=== PATIENT | female | born 1955 | race African-American/Black ===

== ENCOUNTER 2017-08-27 11:16 | Emergency (ER) | payer OTHER ==
--- NOTE | 2017-08-27 11:44 | RAD ---
CHEST ONE VIEW: History: Hypertension. Comparison: 10-15-12 FINDINGS: Cardiac silhouette is magnified by projection. Pulmonary vasculature is upper limits of normal. Media stinum is midline. There is no lobar consolidation or evidence of pneumothorax. Degenerative changes are most pronounced at the right acromioclavicular joint. IMPRESSION: No active cardiopulmonary abnormalities demonstrated. POS: [facility]
[2017-08-27] MEDS ORDERED: Furosemide 40 MG/4 ML VIAL ONE (11:50)
[2017-08-27] MEDS ORDERED: Lisinopril 10 MG TAB ONE (11:50)
[2017-08-27 12:17] LABS: #Eosinphils 0.1 thou/uL (0.0-0.7); #Lymphocytes 1.7 thou/uL (1.20-3.40); #Monocytes 0.3 thou/uL (0.11-0.59); #Neutrophils 2.7 thou/uL (1.40-6.50); %Basophils 0.6 % (0.0-1.0); %Eosinophils 2.9 % (0.0-10.0); %Monocytes 6.9 % (0.0-10.0); %Neutrophils 55.6 % (42.0-75.0); Hemoglobin 14.2 g/dL (12.0-16.0); Mean Corpuscular HGB CONC 31.7 g/dL (32.0-36.0); Mean Corpuscular Hemoglobin 26.3 pg (27.0-31.0); Mean Corpuscular Volume 82.9 fl (81.0-99.0); Mean Platelet Volume 8.2 fL (7.4-10.4); Platelet Count 217 thou/uL (130-400); RBC Distribution Width 13.5 % (11.5-14.5); White Blood Cell (WBC) Count 4.9 thou/uL (4.8-10.8)
[2017-08-27 12:40] LABS: ALT (SGPT) 17 U/L (8-55); AST (SGOT) 20 U/L (5-34); Albumin 3.9 g/dL (3.5-5.0); Alkaline Phosphatase 62 U/L (40-150); Anion Gap 15 mmol/L (10-20); BUN (Urea Nitrogen) 12 mg/dL (9.8-20.1); Bilirubin, Total 0.5 mg/dL (0.2-1.2); CK (CPK) 204 U/L (29-168); Calc. Creatinine Clearance 0 mL/min (70-130); Calcium 9.8 mg/dL (7.8-10.44); Carbon Dioxide 21 mmol/L (22-29); Chloride 107 mmol/L (98-107); Estimated GFR-MDRD 84; Glucose 88 mg/dL (70-105); Potassium 3.8 mmol/L (3.5-5.1); Protein, Total 7.9 g/dL (6.0-8.3); Sodium 139 mmol/L (136-145)
[2017-08-27 12:59] LABS: Troponin I 0.011 ng/mL (< 0.028)
[2017-08-27] MEDS ORDERED: Losartan 25 MG TAB PO ONE (13:00)
[2017-08-27] MEDS ORDERED: cloNIDine 0.1 MG TAB ONE (15:21)
== END 2017-08-27 16:10 | disposition home or self-care (01) ==
LOC: ERS 11:16
DX: I10 Essential (primary) hypertension (principal); E78.5 Hyperlipidemia, unspecified; E66.9 Obesity, unspecified; Z79.899 Other long term (current) drug therapy
CPT/HCPCS: 36415; 71045; 80053; 82550; 82553; 84484; 85025; 93005; 96374; J1940

== ENCOUNTER 2017-11-12 09:51 | Outpatient (CLI) | payer OTHER | END 2017-11-12 09:52 | disposition home or self-care (01) | LOC: BICMAMMO 09:51 | PROVIDERS: ATTEND Internal Medicine | DX: Z12.31 Encounter for screening mammogram for malignant neoplasm of breast (principal) | CPT/HCPCS: 77063; 77067 ==

== ENCOUNTER 2017-11-14 06:11 | Inpatient (IN) | payer OTHER ==
[2017-11-14 06:42] LABS: #Basophils 0.1 thou/uL (0.0-0.2); #Eosinphils 0.2 thou/uL (0.0-0.7); #Lymphocytes 2.2 thou/uL (1.20-3.40); #Monocytes 0.3 thou/uL (0.11-0.59); #Neutrophils 2.5 thou/uL (1.40-6.50); %Basophils 1.6 % (0.0-1.0); %Eosinophils 4.4 % (0.0-10.0); %Monocytes 5.4 % (0.0-10.0); %Neutrophils 47.6 % (42.0-75.0); Hemoglobin 13.7 g/dL (12.0-16.0); Mean Corpuscular HGB CONC 32.1 g/dL (32.0-36.0); Mean Corpuscular Hemoglobin 25.7 pg (27.0-31.0); Mean Corpuscular Volume 80.1 fl (81.0-99.0); Mean Platelet Volume 7.5 fL (7.4-10.4); Platelet Count 237 thou/uL (130-400); RBC Distribution Width 13.1 % (11.5-14.5); Red Blood Cell (RBC) Count 5.31 mill/uL (4.20-5.40); White Blood Cell (WBC) Count 5.3 thou/uL (4.8-10.8)
[2017-11-14 06:47] LABS: INR-International Normal Ratio 0.9; Prothrombin Time 12.5 SEC (12.0-14.7)
[2017-11-14 06:48] LABS: PTT 22.6 SEC (22.9-36.1)
[2017-11-14] MEDS ORDERED: Morphine 4 MG/ML VIAL ONE (07:05)
[2017-11-14] MEDS ORDERED: Adacel (T-DAP) 0.5 ML VIAL ONE (07:05)
[2017-11-14 07:09] LABS: ALT (SGPT) 20 U/L (8-55); AST (SGOT) 21 U/L (5-34); Albumin 4.3 g/dL (3.5-5.0); Alkaline Phosphatase 62 U/L (40-150); Anion Gap 12 mmol/L (10-20); BUN (Urea Nitrogen) 19 mg/dL (9.8-20.1); Bilirubin, Total 0.4 mg/dL (0.2-1.2); Calc. Creatinine Clearance 0 mL/min (70-130); Calcium 10.1 mg/dL (7.8-10.44); Carbon Dioxide 26 mmol/L (22-29); Chloride 105 mmol/L (98-107); Estimated GFR-MDRD 62; Globulin 3.9 g/dL (2.4-3.5); Glucose 172 mg/dL (70-105); Lipase 80 U/L (8-78); Potassium 3.8 mmol/L (3.5-5.1); Protein, Total 8.2 g/dL (6.0-8.3); Sodium 139 mmol/L (136-145)
[2017-11-14] MEDS ORDERED: Ondansetron HCl/PF 4 MG/2 ML Vial IVP SCH (07:15)
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
[2017-11-14] MEDS ORDERED: Lidocaine 1% (PF) 30 ML VIAL ONE (08:00)
[2017-11-14] MEDS ORDERED: Dextrose 50% Abboject 50 ML SYRINGE SLOW IVP PRN (08:10)
[2017-11-14] MEDS ORDERED: Dextrose 5% in Water 1,000 ML IV PRN (08:10)
[2017-11-14] MEDS ORDERED: Insulin Regular 300 UNITS/3 ML VIAL SC PRN (08:10)
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
[2017-11-14] MEDS ORDERED: traMADol HCl 50 MG TAB PO PRN (08:14)
[2017-11-14] MEDS ORDERED: CEFAZOLIN/Water 2 GM/20 ML SYRINGE ONE ×2 (08:30→20:01)
[2017-11-14] MEDS ORDERED: Diltiazem 125 MG/25 ML ONE (08:30)
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
[2017-11-14] MEDS ORDERED: Morphine 4 MG/ML VIAL IV PRN (08:59)
[2017-11-14] MEDS ORDERED: Atropine Sulfate 1% Ophth Soln 5 ml Bottle EA EYE SCH (09:00)
[2017-11-14] MEDS ORDERED: Bacitracin Zinc 1 Packet ONE (09:02)
[2017-11-14] MEDS: Sodium Chloride 0.9% 1,000 ML IV SCH ×2 (10:57→18:43)
[2017-11-14] MEDS: Acetaminophen 500 MG TAB PO SCH ×3 (11:03→21:57)
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
[2017-11-14] MEDS ORDERED: Ophthalmic Irrigation Solution 15 ML ONE (12:50)
[2017-11-14] MEDS ORDERED: [UNRECOGNIZED DRUG - OTHER] ONE (12:59)
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
[2017-11-14] MEDS ORDERED: CEFAZOLIN 1 GM VIAL ONE ×3 (13:09→19:59)
[2017-11-14] MEDS ORDERED: Fentanyl 100 MCG/2 ML VIAL ONE ×3 (13:34→17:22)
[2017-11-14] MEDS ORDERED: hydrALAZINE 20 MG/ML VIAL ONE (13:44)
[2017-11-14] MEDS ORDERED: PHENYLEPHRINE-NS 100 MCG/ML 10 ML SYRINGE ONE (15:12)
[2017-11-14] MEDS ORDERED: ePHEDrine/0.9% NaCl/PF SYRINGE 50 mg/10 ml ONE (15:12)
[2017-11-14] MEDS ORDERED: Glycopyrrolate 0.2 MG/ML 5 ML SYRINGE ONE (15:12)
[2017-11-14] MEDS ORDERED: PROPOFOL 200 MG/20 ML VIAL ONE (15:12)
[2017-11-14] MEDS ORDERED: Lidocaine 1% PF 5 ML VIAL ONE (15:12)
[2017-11-14] MEDS ORDERED: ISOVUE-370 76%-LOCM 1 ML ONE (16:23)
[2017-11-14] MEDS ORDERED: hydrALAZINE 20 MG/ML VIAL SLOW IVP PRN (16:59)
[2017-11-14] MEDS ORDERED: Promethazine HCl 25 MG/ML VIAL SLOW IVP PRN (17:42)
[2017-11-14] MEDS ORDERED: Promethazine HCl 25 MG/ML VIAL IM PRN (17:42)
[2017-11-14] MEDS ORDERED: Ondansetron HCl/PF 4 MG/2 ML Vial IVP PRN ×2 (17:42→22:27)
[2017-11-14] MEDS ORDERED: SUGAMMADEX SODIUM 200 MG/2 ML VIAL ONE (20:20)
[2017-11-14] MEDS ORDERED: Ondansetron HCl/PF 4 MG/2 ML Vial ONE (20:29)
[2017-11-14] MEDS: traMADol HCl 50 MG TAB PO PRN (21:53)
[2017-11-14] MEDS ORDERED: Ondansetron ODT 4 MG TAB PO PRN (22:27)
[2017-11-14] MEDS ORDERED: Lactated Ringer's 1,000 ML IV SCH (22:30)
[2017-11-15] MEDS: Acetaminophen 500 MG TAB PO SCH ×4 (03:54→20:16)
[2017-11-15 04:03] VITALS: BMI 45.8
[2017-11-15 05:45] LABS: Anion Gap 13 mmol/L (10-20); BUN (Urea Nitrogen) 18 mg/dL (9.8-20.1); Calc. Creatinine Clearance 98 mL/min (70-130); Carbon Dioxide 25 mmol/L (22-29); Chloride 105 mmol/L (98-107); Estimated GFR-MDRD 57; Glucose 173 mg/dL (70-105); Potassium 3.6 mmol/L (3.5-5.1); Sodium 139 mmol/L (136-145)
[2017-11-15 06:17] LABS: #Lymphocytes 1.1 thou/uL (1.20-3.40); #Monocytes 0.5 thou/uL (0.11-0.59); #Neutrophils 7.3 thou/uL (1.40-6.50); %Basophils 0.1 % (0.0-1.0); %Eosinophils 0.1 % (0.0-10.0); %Lymphocytes 12.3 % (21.0-51.0); %Monocytes 5.4 % (0.0-10.0); %Neutrophils 82.2 % (42.0-75.0); Hemoglobin 12.1 g/dL (12.0-16.0); Mean Corpuscular HGB CONC 32.7 g/dL (32.0-36.0); Mean Corpuscular Hemoglobin 26.7 pg (27.0-31.0); Mean Corpuscular Volume 81.6 fl (81.0-99.0); Mean Platelet Volume 7.8 fL (7.4-10.4); Platelet Count 229 thou/uL (130-400); RBC Distribution Width 13.3 % (11.5-14.5); RBC Morphology Normal; Red Blood Cell (RBC) Count 4.52 mill/uL (4.20-5.40); White Blood Cell (WBC) Count 8.9 thou/uL (4.8-10.8)
[2017-11-15] MEDS: traMADol HCl 50 MG TAB PO PRN ×3 (08:08→20:15)
[2017-11-15] MEDS: Maxitrol 0.1% Opth Oint 3.5 GM TUBE L EYE SCH ×3 (13:01→20:17)
[2017-11-15] MEDS: Senokot S 8.6-50 MG TAB PO SCH (20:54)
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
[2017-11-16] MEDS: Acetaminophen 500 MG TAB PO SCH ×3 (03:00→15:00)
[2017-11-16] MEDS: traMADol HCl 50 MG TAB PO PRN (07:16)
[2017-11-16] MEDS ORDERED: Polyethylene Glycol 3350 17 GM Packet PO SCH (09:00)
[2017-11-16] MEDS: Maxitrol 0.1% Opth Oint 3.5 GM TUBE L EYE SCH ×2 (09:10→12:52)
[2017-11-16] MEDS: Senokot S 8.6-50 MG TAB PO SCH (09:11)
[2017-11-16 12:49] VITALS: BP 158/84; TEMP 97.7
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
== END 2017-11-16 16:41 | disposition home or self-care (01) | DRG 116 ==
LOC: ERS 06:11 → SJJU 07:28
PROVIDERS: ADMIT Surgery; ATTEND Surgery
PROC: 08Q7XZZ Repair Left Sclera, External Approach (ICD-10-PCS; principal; 2017-11-14)
PROC: 0JQ10ZZ Repair Face Subcutaneous Tissue and Fascia, Open Approach (ICD-10-PCS; 2017-11-14)
PROC: 089 Eye, Drainage (ICD-10-PCS; 2017-11-14)
PROC: 08CTXZZ Extirpation of Matter from Left Conjunctiva, External Approach (ICD-10-PCS; 2017-11-14)
DX: S05.32XA Ocular laceration without prolapse or loss of intraocular tissue, left eye, initial encounter (principal); S02.32XA Fracture of orbital floor, left side, initial encounter for closed fracture; H35.62 Retinal hemorrhage, left eye; H43.12 Vitreous hemorrhage, left eye; S02.82XA Fracture of other specified skull and facial bones, left side, initial encounter for closed fracture; N83.201 Unspecified ovarian cyst, right side; K44.9 Diaphragmatic hernia without obstruction or gangrene; S01.81XA Laceration without foreign body of other part of head, initial encounter; R07.89 Other chest pain; M79.652 Pain in left thigh; I10 Essential (primary) hypertension; V89.2XXA Person injured in unspecified motor-vehicle accident, traffic, initial encounter
CPT/HCPCS: 36415; 36416; 70450; 70486; 71260; 72125; 74177; 80048; 80053; 83690; 85025; 85610; 85730; 86850; 86900; 86901; 90471; 90715; 94640; 96361; 96374; 96375; G0390; G8978-GP-CI; G8979-GP-CI; G8980-GP-CI; J0360; J0690; J2001; J2270; J2405; J2704; J3010; J3370; J7620

== ENCOUNTER 2017-12-11 23:46 | Emergency (ER) | payer OTHER ==
[2017-12-12] MEDS ORDERED: traMADol HCl 50 MG TAB ONE (04:53)
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
== END 2017-12-12 06:52 | disposition home or self-care (01) ==
LOC: ERS 23:46
DX: R51 Headache (principal); E78.5 Hyperlipidemia, unspecified; E66.9 Obesity, unspecified; Z79.899 Other long term (current) drug therapy
CPT/HCPCS: 70480

== ENCOUNTER 2018-03-27 09:54 | Outpatient (CLI) | payer OTHER ==
[2018-03-27] MEDS ORDERED: Gadobenate Dimeglumine 529 MG/1 ML (20ML VIAL) ONE (13:39)
== END 2018-03-27 09:55 | disposition home or self-care (01) ==
LOC: BICMRI 09:54
PROVIDERS: ATTEND Obstetrics & Gynecology
DX: R19.09 Other intra-abdominal and pelvic swelling, mass and lump (principal)
CPT/HCPCS: 72197; 82565; A9579

== ENCOUNTER 2018-04-27 12:47 | Outpatient (CLI) | payer OTHER, MEDICAID ==
[~2018-04-27 12:47] MED LIST: Iopamidol 370 76% 100 ML VIAL ONE
--- NOTE | 2018-04-27 16:23 | CT ---
CT OF THE ABDOMEN AND PELVIS WITH IV CONTRAST: INDICATION: History of adnexal mass and cervical mass. COMPARISON: MRI of the pelvis dated 03/27/18. FINDINGS: The lung bases are clear. There is mild fatty infiltration of the liver. The pancreas and adrenal glands are unremarkable. The kidneys demonstrate a small cyst within the le ft mid kidney. The spleen is normal appearing. Large hypodense mass lesion centered within the right aspect of the cervix appears similar to the [facility] MRI examination. Bladder, rectum, and perirectal soft tissues are unremarkable. No definite enlarged lymph nodes or free fluid is identified. No definite acute osseous abnormality is evident. There is scattered degenerative and osteoarthritic change. No lytic or sclerotic lesion is evident. IMPRESSION: 1. Stable right cervical mass. 2. Bilateral renal cysts. 3. Fatty liver. 4. Other chronic findings as above. POS: [facility]
== END 2018-04-27 12:48 | disposition home or self-care (01) ==
LOC: CT 12:47
PROVIDERS: ATTEND Obstetrics & Gynecology Gynecologic Oncology
DX: R19.03 Right lower quadrant abdominal swelling, mass and lump (principal); N88.9 Noninflammatory disorder of cervix uteri, unspecified; N28.1 Cyst of kidney, acquired; K76.0 Fatty (change of) liver, not elsewhere classified; M19.90 Unspecified osteoarthritis, unspecified site
CPT/HCPCS: 74177; 82565

== ENCOUNTER 2018-06-23 10:06 | Outpatient (CLI) | payer OTHER, MEDICAID ==
--- NOTE | 2018-06-23 12:58 | ULT ---
PELVIC ULTRASOUND: COMPARISON: None. CORRELATION: Abdomen and pelvic CT 04/27/2018. HISTORY: Cervical mass. Adnexal mass. TECHNIQUE: Transabdominal and endovaginal imaging of the pelvis is performed. FINDINGS: Uterus is identified measuring 5.0 x 3.4 x 7.4 cm. Suboptimal evaluation of the endometrium. Incidental nabothian cysts are noted. There appears to be uterine leiomyoma measuring 2.8 x 2.8 x 3.0 cm in the mid portion of the uterus. Near the lower uterine segment, there appears to be a hypoechoic area measuring 4.6 x 3.5 x 3.3 cm. Neither ovary is appreciated. No free fluid. IMPRESSION: 1. Uterine leiomyoma. 2. Hypoechoic area of the lower aspect of the pelvis likely corresponding to the hypodensity noted o n recent CT. This hypodensity has been described as a cervical mass in the past. Please refer to CT and MRI reports for further details. POS: [facility]
== END 2018-06-23 10:07 | disposition home or self-care (01) ==
LOC: BICULT 10:06
PROVIDERS: ATTEND Obstetrics & Gynecology Gynecologic Oncology
DX: R19.03 Right lower quadrant abdominal swelling, mass and lump (principal); D25.9 Leiomyoma of uterus, unspecified
CPT/HCPCS: 76856

== ENCOUNTER 2020-06-05 10:50 | Outpatient (CLI) | payer OTHER ==
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
== END 2020-06-05 10:51 | disposition home or self-care (01) ==
LOC: BICRAD 10:50
PROVIDERS: ATTEND Internal Medicine
DX: Z02.71 Encounter for disability determination (principal); M46.96 Unspecified inflammatory spondylopathy, lumbar region
CPT/HCPCS: 72100

== ENCOUNTER 2024-07-15 18:53 | Inpatient (IN) | payer MEDICARE, OTHER, SELFPAY ==
[~2024-07-15 18:53] MED LIST changes: -Iopamidol 370 76% 100 ML VIAL ONE; +Iopamidol-370 76% 500 ML MDV (1 ML CHARGE) ONE
[2024-07-15 19:15] LABS: #Basophils 0.04 10x3/uL (0.0-0.2); %Basophils 0.7 % (0.0-1.0); %Eosinophils 4.5 % (0.0-10.0); %Lymphocytes 50.1 % (21.0-51.0); %Monocytes 8.3 % (0.0-10.0); %Neutrophils 36.4 % (42.0-75.0); Hematocrit 45.8 % (36.0-47.0); Hemoglobin 14.5 g/dL (12.0-16.0); Mean Corpuscular HGB CONC 31.7 g/dL (32.0-36.0); Mean Corpuscular Hemoglobin 25.1 pg (27.0-31.0); Mean Corpuscular Volume 79.4 fL (78.0-98.0); Mean Platelet Volume 11.3 fL (7.4-10.4); Platelet Count 196 10x3/uL (130-400); RBC Distribution Width 14.7 % (11.5-14.5); Red Blood Cell (RBC) Count 5.77 mill/uL (4.20-5.40)
[2024-07-15] MEDS ORDERED: hydrALAZINE 20 MG/ML VIAL ONE (19:44)
[2024-07-15 19:45] LABS: ALT (SGPT) 30 U/L (8-55); AST (SGOT) 34 U/L (5-34); Albumin 4.4 g/dL (3.4-4.8); Alkaline Phosphatase 66 U/L (40-110); Anion Gap 19 mmol/L (10-20); BUN (Urea Nitrogen) 16 mg/dL (9.8-20.1); Bilirubin, Total 0.6 mg/dL (0.2-1.2); Calc. Creatinine Clearance 0 mL/min (70-130); Carbon Dioxide 22 mmol/L (23-31); Chloride 106 mmol/L (98-107); Estimated GFR 56; Globulin 4.2 g/dL (2.4-3.5); Glucose 108 mg/dL (80-115); Potassium 4.7 mmol/L (3.5-5.1); Protein, Total 8.6 g/dL (5.8-8.1); Sodium 142 mmol/L (136-145); Troponin I 0.017 ng/mL (< 0.028)
[2024-07-15] MEDS ORDERED: Calcium Carbonate 500 MG ChewTAB PO PRN (23:42)
[2024-07-15] MEDS ORDERED: Ondansetron PF 4 MG/2 ML Vial IVP PRN (23:42)
[2024-07-15] MEDS ORDERED: Acetaminophen 650 MG Suppository PR PRN (23:42)
[2024-07-16 00:24] LABS: Lactic Acid 4.27 mmol/L (0.5-2.2)
[2024-07-16] MEDS: Acetaminophen 325 MG TAB PO SCH (00:55)
[2024-07-16] MEDS ORDERED: Furosemide 20 MG (2 mL) VIAL ONE (02:21)
[2024-07-16] MEDS: Furosemide 20 MG (2 mL) VIAL SLOW IVP SCH (02:25)
[2024-07-16 03:32] LABS: #Basophils 0.03 10x3/uL (0.0-0.2); #Eosinophils Less than 0.03 10x3/uL (0.0-0.7); %Basophils 0.5 % (0.0-1.0); %Eosinophils 0.3 % (0.0-10.0); %Lymphocytes 12.9 % (21.0-51.0); %Monocytes 5.1 % (0.0-10.0); Hematocrit 42.5 % (36.0-47.0); Hemoglobin 13.4 g/dL (12.0-16.0); Mean Corpuscular HGB CONC 31.5 g/dL (32.0-36.0); Mean Corpuscular Hemoglobin 25.6 pg (27.0-31.0); Mean Corpuscular Volume 81.1 fL (78.0-98.0); Mean Platelet Volume 10.5 fL (7.4-10.4); Platelet Count 222 10x3/uL (130-400); RBC Distribution Width 14.7 % (11.5-14.5); Red Blood Cell (RBC) Count 5.24 mill/uL (4.20-5.40)
[2024-07-16 03:33] VITALS: BMI 40.5
[2024-07-16 03:44] LABS: Lactic Acid 1.58 mmol/L (0.5-2.2)
[2024-07-16 03:49] LABS: Anion Gap 14 mmol/L (10-20); BUN (Urea Nitrogen) 14 mg/dL (9.8-20.1); Calc. Creatinine Clearance 111 mL/min (70-130); Calcium 9.8 mg/dL (7.8-10.44); Carbon Dioxide 22 mmol/L (23-31); Cardiac Risk 4.6 (Less than 4.5); Chloride 109 mmol/L (98-107); Cholesterol 241 mg/dl (< 200 Desired); Estimated GFR 77; Glucose 108 mg/dL (80-115); HDL Cholesterol 52 mg/dL (>60 Neg Risk); LDL Cholesterol, Calculated 174 mg/dL; Potassium 3.6 mmol/L (3.5-5.1); Sodium 141 mmol/L (136-145); Triglycerides 76 mg/dL (Less than 150)
[2024-07-16 04:00] LABS: A1c 175.652 g/dL; Hb (HGBA1c) 3891.2141 umol/L; Hemoglobin A1c 6.3 % (4.0-6.0)
[2024-07-16] MEDS ORDERED: Potassium Chloride 20 MEQ TAB ONE (08:15)
[2024-07-16] MEDS ORDERED: Famotidine 20 MG TAB ONE (08:15)
[2024-07-16] MEDS ORDERED: Carvedilol 6.25 MG TAB ONE ×2 (08:16→18:29)
[2024-07-16] MEDS ORDERED: Amlodipine 5 MG TAB ONE (08:21)
[2024-07-16] MEDS ORDERED: Losartan 25 MG TAB ONE (08:21)
[2024-07-16] MEDS ORDERED: ALPRAZolam 0.25 MG TAB ONE (08:23)
[2024-07-16] MEDS: Carvedilol 6.25 MG TAB PO SCH (08:34)
[2024-07-16] MEDS: ALPRAZolam 0.25 MG TAB PO SCH (08:35)
[2024-07-16] MEDS: Potassium Chloride 20 MEQ TAB PO SCH (08:35)
[2024-07-16] MEDS: Amlodipine 5 MG TAB PO SCH (08:35)
[2024-07-16] MEDS: Famotidine 20 MG TAB PO SCH (08:36)
[2024-07-16] MEDS: Losartan 25 MG TAB PO SCH (08:36)
[2024-07-16] MEDS ORDERED: Carvedilol 6.25 MG TAB PO SCH (09:00)
[2024-07-16] MEDS: Hydrochlorothiazide 25 MG TAB PO SCH (10:00)
[2024-07-16] MEDS: Famotidine/PF 20 mg/2ml Vial SLOW IVP SCH (12:37)
[2024-07-16] MEDS ORDERED: Acetaminophen 325 MG TAB ONE (18:29)
[2024-07-16] MEDS: Atorvastatin Calcium 40 MG TAB PO SCH (20:59)
[2024-07-17] MEDS ORDERED: Aspirin 81 mg Enteric Coated Tablet PO SCH (09:00)
[2024-07-17] MEDS: Aspirin 325 mg Enteric Coated Tablet PO SCH (09:37)
[2024-07-17] MEDS ORDERED: Potassium Chloride 20 MEQ TAB PO SCH (12:45)
[2024-07-17 13:13] LABS: Anion Gap 15 mmol/L (10-20); BUN (Urea Nitrogen) 17 mg/dL (9.8-20.1); Calc. Creatinine Clearance 100 mL/min (70-130); Calcium 9.6 mg/dL (7.8-10.44); Carbon Dioxide 23 mmol/L (23-31); Chloride 108 mmol/L (98-107); Estimated GFR 68; Glucose 99 mg/dL (80-115); Sodium 142 mmol/L (136-145)
[2024-07-17] MEDS: Magnesium 2 GM/50 ML(in water) 2 GM in Premix 1 BAG IVPB SCH (13:45)
[2024-07-18 04:28] LABS: #Basophils 0.04 10x3/uL (0.0-0.2); %Eosinophils 7.1 % (0.0-10.0); %Lymphocytes 36.7 % (21.0-51.0); %Monocytes 10.7 % (0.0-10.0); %Neutrophils 44.5 % (42.0-75.0); Hematocrit 38.5 % (36.0-47.0); Hemoglobin 12.1 g/dL (12.0-16.0); Mean Corpuscular HGB CONC 31.4 g/dL (32.0-36.0); Mean Corpuscular Hemoglobin 25.7 pg (27.0-31.0); Mean Corpuscular Volume 81.7 fL (78.0-98.0); Mean Platelet Volume 10.8 fL (7.4-10.4); Platelet Count 213 10x3/uL (130-400); RBC Distribution Width 14.8 % (11.5-14.5); Red Blood Cell (RBC) Count 4.71 mill/uL (4.20-5.40)
[2024-07-18 04:54] LABS: Anion Gap 12 mmol/L (10-20); BUN (Urea Nitrogen) 19 mg/dL (9.8-20.1); Calc. Creatinine Clearance 106 mL/min (70-130); Calcium 9.5 mg/dL (7.8-10.44); Carbon Dioxide 21 mmol/L (23-31); Chloride 111 mmol/L (98-107); Estimated GFR 73; Glucose 128 mg/dL (80-115); Potassium 3.9 mmol/L (3.5-5.1); Sodium 140 mmol/L (136-145)
[2024-07-18] MEDS: Ondansetron ODT 4 MG TAB PO PRN (08:11)
[2024-07-18] MEDS: Carvedilol 6.25 MG TAB PO SCH ×2 (09:30→16:15)
[2024-07-18] MEDS: Spironolactone 25 MG TAB PO SCH (09:30)
[2024-07-18] MEDS: Dapagliflozin Propanediol 10 MG TAB PO SCH (09:30)
[2024-07-18] MEDS: Furosemide 40 MG (4 mL) VIAL SLOW IVP SCH (16:14)
[2024-07-19 05:26] LABS: #Basophils 0.06 10x3/uL (0.0-0.2); %Basophils 1.3 % (0.0-1.0); %Eosinophils 6.1 % (0.0-10.0); %Lymphocytes 35.8 % (21.0-51.0); %Monocytes 13.4 % (0.0-10.0); %Neutrophils 43.2 % (42.0-75.0); Hematocrit 40.9 % (36.0-47.0); Hemoglobin 12.8 g/dL (12.0-16.0); Mean Corpuscular HGB CONC 31.3 g/dL (32.0-36.0); Mean Corpuscular Hemoglobin 25.4 pg (27.0-31.0); Mean Corpuscular Volume 81.2 fL (78.0-98.0); Platelet Count 207 10x3/uL (130-400); RBC Distribution Width 14.9 % (11.5-14.5); Red Blood Cell (RBC) Count 5.04 mill/uL (4.20-5.40)
[2024-07-19 06:34] LABS: Anion Gap 14 mmol/L (10-20); BUN (Urea Nitrogen) 23 mg/dL (9.8-20.1); Calc. Creatinine Clearance 68 mL/min (70-130); Calcium 9.9 mg/dL (7.8-10.44); Carbon Dioxide 25 mmol/L (23-31); Chloride 106 mmol/L (98-107); Estimated GFR 43; Glucose 119 mg/dL (80-115); Potassium 3.7 mmol/L (3.5-5.1); Sodium 141 mmol/L (136-145)
[2024-07-19] MEDS: Spironolactone 25 MG TAB PO SCH (07:44)
[2024-07-19] MEDS: Furosemide 40 MG (4 mL) VIAL SLOW IVP SCH (09:32)
[2024-07-19] MEDS: Sacubitril 49 MG/Valsartan 51 MG TABLET PO SCH (20:25)
[2024-07-20 04:01] LABS: #Basophils 0.05 10x3/uL (0.0-0.2); %Basophils 1.1 % (0.0-1.0); %Eosinophils 6.2 % (0.0-10.0); %Lymphocytes 37.8 % (21.0-51.0); %Monocytes 12.5 % (0.0-10.0); %Neutrophils 42.2 % (42.0-75.0); Hematocrit 42.5 % (36.0-47.0); Hemoglobin 13.2 g/dL (12.0-16.0); Mean Corpuscular HGB CONC 31.1 g/dL (32.0-36.0); Mean Corpuscular Volume 80.5 fL (78.0-98.0); Mean Platelet Volume 11.1 fL (7.4-10.4); Platelet Count 218 10x3/uL (130-400); RBC Distribution Width 14.6 % (11.5-14.5); Red Blood Cell (RBC) Count 5.28 mill/uL (4.20-5.40)
[2024-07-20 04:26] LABS: Anion Gap 15 mmol/L (10-20); BUN (Urea Nitrogen) 26 mg/dL (9.8-20.1); Calc. Creatinine Clearance 72 mL/min (70-130); Calcium 10.2 mg/dL (7.8-10.44); Carbon Dioxide 25 mmol/L (23-31); Chloride 103 mmol/L (98-107); Estimated GFR 46; Glucose 140 mg/dL (80-115); Potassium 3.9 mmol/L (3.5-5.1); Sodium 139 mmol/L (136-145)
[2024-07-20] MEDS ORDERED: Regadenoson 0.4 MG/5 ML SYRINGE ONE (09:03)
[2024-07-20 13:41] VITALS: BP 109/73; TEMP 99
== END 2024-07-20 19:33 | disposition home or self-care (01) | DRG 64 ==
LOC: ERS 18:53 → ERHOLD 21:53 → OBSVTOIN 07-16 10:50 → 2SE 07-16 20:50
PROVIDERS: ADMIT Student in an Organized Health Care Education/Training Program; ATTEND Internal Medicine
DX: I63.89 Other cerebral infarction (principal); R20.0 Anesthesia of skin; R20.2 Paresthesia of skin; G81.91 Hemiplegia, unspecified affecting right dominant side; H44.522 Atrophy of globe, left eye; I11.0 Hypertensive heart disease with heart failure; I50.23 Acute on chronic systolic (congestive) heart failure; I16.0 Hypertensive urgency; E87.20 Acidosis, unspecified; I47.20 Ventricular tachycardia, unspecified; E78.5 Hyperlipidemia, unspecified; R73.03 Prediabetes; E66.9 Obesity, unspecified; Z68.41 Body mass index [BMI] 40.0-44.9, adult; Z79.899 Other long term (current) drug therapy; Z87.828 Personal history of other (healed) physical injury and trauma; Z98.890 Other specified postprocedural states
CPT/HCPCS: 36415; 36416; 70450; 70496; 70498; 70551; 71045; 78452; 80048; 80053; 80061; 83036; 83605; 83735; 83880; 84443; 84484; 85025; 87428; 93005; 93017; 93306; 96361; 96374; 97139; A9502; J0360; J1940; J2785; J3475; Q0162; Q9967